=== PATIENT | male | born 1955 | race Caucasian/White ===

== ENCOUNTER 2020-06-24 11:15 | Inpatient (IN) ==
--- NOTE | 2020-06-09 08:23 | ANES ---
Anesthesia Pre Procedure Eval HOME MEDICATIONS aspirin 81 mg tablet,delayed release 81 mg PO DAILY 02/12/18 [Last Taken Unknown] blood-glucose meter See Dose Instructions .ROUTE .MEDSUPPLY #1 ea 02/12/18 [Last Taken Unknown] furosemide 40 mg tablet 40 mg PO BID #180 tab 06/27/19 [Last Taken Unknown] simvastatin 20 mg tablet 20 mg PO HS #90 tab 06/27/19 [Last Taken Unknown] insulin syringe-needle U-100 1 mL 30 gauge x 1/2" See Dose Instructions .ROUTE .MEDSUPPLY #100 ea 08/07/19 [Last Taken Unknown] acetaminophen 650 mg tablet,extended release 1,300 mg PO BID tab 10/16/19 [Last Taken Unknown] metoprolol succinate 100 mg tablet,extended release 24 hr 100 mg PO DAILY #30 tab 10/16/19 [Last Taken Unknown] clopidogrel 75 mg tablet See Rx Instructions .ROUTE .COMPLEX #30 tablet 11/12/19 [Last Taken Unknown] losartan 100 mg tablet See Rx Instructions .ROUTE .COMPLEX #90 tab 12/15/19 [Last Taken Unknown] ropinirole 3 mg tablet See Rx Instructions .ROUTE .COMPLEX #90 unknown measurement unit code: tablet 01/06/20 [Last Taken Unknown] insulin glargine 100 unit/mL (3 mL) subcutaneous pen 110 unit SUB-Q BID #90 ml 01/20/20 [Last Taken Unknown] insulin human U-100 NPH-regulr 70-30 mix 100 unit/mL subcutaneous susp See Rx Instructions .ROUTE .COMPLEX #90 ml 01/20/20 [Last Taken Unknown] metformin 1,000 mg tablet 1,000 mg PO BID #60 tab 01/20/20 [Last Taken Unknown] allopurinol 300 mg tablet 300 mg PO DAILY #90 tab 02/16/20 [Last Taken Unknown] tamsulosin 0.4 mg capsule 0.8 mg PO DAILY #180 cap 04/12/20 [Last Taken Unknown] Allergies/Adverse Reactions: Allergies Allergy/AdvReac Type Severity Reaction Status Date / Time Neuromuscular Blockers, AdvReac Severe severe Verified 06/02/20 13:52 Steroidal hypertension Corticosteroids AdvReac Mild Other Verified 06/02/20 13:52 (Glucocorticoids) prednisolone AdvReac Other Verified 06/02/20 13:52 - Planned Procedure Planned Procedure: L Arthroplasty Total Knee Medication List Reviewed:: Yes Allergies Verified: Yes Medical History (Last Reviewed 06/09/20 @ 08:22 by Hari Gastelum CRNA) Chronic knee pain after total replacement of right knee joint (Chronic) TKA 8 years ago Chronic right shoulder pain (Chronic) Primary osteoarthritis of left knee (Chronic) Erectile dysfunction of organic origin Onset Date: 01/18/13 Moderate concentric left ventricular hypertrophy Onset Date: 10/23/12 BPH (benign prostatic hyperplasia) Onset Date: Unknown Chronic kidney disease, stage 3 (moderate) Onset Date: 08/03/15 Chronic venous insufficiency Onset Date: 01/29/18 DJD (degenerative joint disease) of knee Onset Date: ~2010 bilateral Diabetes mellitus Onset Date: ~2003 Diastolic dysfunction Onset Date: 10/23/12 Edema Onset Date: 11/22/12 GERD (gastroesophageal reflux disease) Onset Date: 07/27/15 Gout Onset Date: Unknown Hyperlipidemia Onset Date: Unknown Hypertension Onset Date: ~2002 Obstructive sleep apnea Onset Date: 12/15/14 Trace mitral regurgitation by prior echocardiogram Onset Date: 10/23/12 CVA (cerebral vascular accident) Onset Date: ~2008 Otitis externa Onset Date: 01/29/18 infective, left Surgical History (Last Reviewed 06/09/20 @ 08:22 by Hari Gastelum CRNA) H/O arthroscopy of right knee Onset Date: Unknown History of appendectomy Onset Date: ~1971 History of knee replacement procedure of right knee Onset Date: 05/01/11 Dr Guerra History of thoracotomy Onset Date: ~1969 History of tonsillectomy Onset Date: ~1962 History of vasectomy Onset Date: 12/14/14 Family History (Last Reviewed 06/09/20 @ 08:22 by Hari Gastelum CRNA) Mother Diabetes Cancer CHF (congestive heart failure) Father Diabetes Sister Cancer - Family Anesthesia History Family History:: no untoward family reactions to anesthesia - Airway/Neck/Teeth Teeth Condition: intact - Respiratory Respiratory History: CPAP/BiPAP home use Smoking Status: Never smoker Sleep Apnea currently treated: Yes Sleep Apnea by current assessment: Yes - Cardiovascular Cardiac History: CVA/stroke, hypertension, hyperlipidemia Tolerate Activity: Fair - Gastrointestinal NPO since: mn - Anesthesia Assessment and Plan ASA Class: PS, III Anesthesia Type Plan: Spinal - adductor canal block
[~2020-06-24 11:15] MED LIST: MORPHINE SULFATE 15 MG TABLET.SA PO PRN; RINGER'S SOLUTION,LACTATED 1,000 ML IV PRN; ROPIVACAINE HCL/PF 100 MG, EPINEPHrine 0.2 MG in NORMAL SALINE 100 ML IJ PRN; TRANEXAMIC ACID 1,000 MG in NORMAL SALINE 100 ML IV PRN; ceFAZolin SODIUM 1 GM VIAL IV PRN
[2020-07-15] MEDS ORDERED: MORPHINE SULFATE 15 MG TABLET.SA PO PRN (06:00)
[2020-07-15] MEDS ORDERED: ceFAZolin SODIUM 1 GM VIAL IV PRN (06:00)
[2020-07-15] MEDS ORDERED: RINGER'S SOLUTION,LACTATED 1,000 ML IV PRN ×2 (06:00→10:20)
[2020-07-15] MEDS ORDERED: ROPIVACAINE HCL/PF 100 MG, EPINEPHrine 0.2 MG in NORMAL SALINE 100 ML IJ PRN (06:00)
[2020-07-15] MEDS ORDERED: TRANEXAMIC ACID 1,000 MG in NORMAL SALINE 100 ML IV PRN (06:00)
[2020-07-15] MEDS ORDERED: ISOPROPYL ALCOHOL 480 APPL BTL MC ONE (06:28)
[2020-07-15] MEDS ORDERED: ceFAZolin SODIUM 1 GM VIAL ONE (06:28)
[2020-07-15] MEDS ORDERED: diphenhydrAMINE HCL 50 MG/ML VIAL IV PRN ×2 (07:26→10:20)
[2020-07-15] MEDS ORDERED: HYDROmorphone HCL 2 MG/ML VIAL IV PRN (07:26)
[2020-07-15] MEDS ORDERED: NALOXONE HCL 0.4 MG/ML VIAL IV PRN (07:26)
[2020-07-15] MEDS ORDERED: ONDANSETRON HCL/PF 2 MG/ML VIAL IV PRN ×2 (07:26→10:20)
[2020-07-15] MEDS ORDERED: PROCHLORPERAZINE EDISYLATE 5 MG/ML VIAL IV PRN (07:26)
[2020-07-15] MEDS ORDERED: LIDOCAINE HCL 20 ML VIAL ONE (07:42)
[2020-07-15] MEDS ORDERED: ONDANSETRON HCL/PF 2 MG/ML VIAL ONE (07:43)
[2020-07-15] MEDS ORDERED: PROPOFOL VIAL IV ONE (07:43)
[2020-07-15] MEDS ORDERED: fentaNYL CITRATE/PF 50 MCG/ML AMPUL ONE (07:43)
[2020-07-15] MEDS ORDERED: BUPIVACAINE HCL/EPINEPHRINE 50 ML VIAL ONE (07:44)
[2020-07-15] MEDS ORDERED: ZOLPIDEM TARTRATE 5 MG TABLET PO PRN (10:20)
[2020-07-15] MEDS ORDERED: ACETAMINOPHEN 500 MG TABLET PO PRN (10:20)
[2020-07-15] MEDS ORDERED: MAGNESIUM HYDROXIDE 30 ML UDC PO PRN (10:20)
[2020-07-15] MEDS ORDERED: MAG HYDROX/ALUMINUM HYD/SIMETH 30 ML UDC PO PRN (10:20)
[2020-07-15] MEDS ORDERED: MORPHINE SULFATE 2 MG/ML DISP.SYRIN IV PRN (10:20)
--- NOTE | 2020-07-15 10:20 | OR ---
Operative Report - Dictated Report Narrative: Date: 07/15/2020 Preoperative diagnosis: Left knee degenerative joint disease. Postoperative diagnosis: Left knee degenerative joint disease. Procedure: Left total knee arthroplasty. Surgeon: Angus Castañeda M.D. Manager Materials Management: Mohsen Hurtado PA-C (provided and essential set of skilled, educated hands that assisted with transfer, positioning, prepping, draping, manipulation, retraction, placement of jigs, injection, insertion of implants, irrigation, closure wounds, and dressings all of which could not be performed by the available surgical crew) Anesthesia: Spinal with regional block and local periarticular joint injection. Complications: None Specimens: Bone. Estimated blood loss: Minimal. Tourniquet time: 120 minutes at 350 millimeters of mercury. Retained implants: Depuy Attune size 8 left lugged cemented posterior stabilized femoral component. Size 7 fixed-bearing cemented revision tibial platform. 8 by 5 millimeter posterior stabilized cross-linked tibial insert. 41 millimeter medialized patella button. Indications: Mr. Doll is a 65-year-old gentleman who has had longstanding left knee pain and arthrosis. This patient was followed in my clinic for period of time with significant complaints of left knee pain consistent with arthritic changes. He had failed conservative measures including, but not limited to, activity modification, passage of time, medications, and other conservative measures. Patient wished to proceed with surgical treatment. The risks, benefits, and alternatives were discussed in clinic. The risks of , blood clots, bleeding, infection, nerve/tendon blood vessel/ injury, malposition of components, intraoperative fracture, postoperative limited range of motion, persistent pain, failure of components, and need for additional procedures. Patient wished to proceed consent was obtained after answering all questions. Procedure: After marking the correct extremity on the floor, the patient was taken to the operating room. A timeout was performed. IV antibiotics consisting of Ancef were administered prior to the procedure. A regional followed by spinal anesthetic was induced by anesthesia, per my request, on the operative table with all bony prominences well-padded. Lopez catheter was placed, and a bump was placed under the operative side buttock. SCDs and LANA hose were utilized on the nonoperative leg. A well-padded tourniquet was applied to the operative thigh. The operative leg was then pre-scrubbed with alcohol, prepped, and draped in a standard sterile fashion. After exsanguinating the extremity with an Esmarch bandage, the tourniquet was inflated. After marking out the anterior knee for standard incision centered over the patella, the skin was incised and dissected down to the joint retinaculum. The joint retinaculum was marked out as well as the horizontal axis of the patella, and a standard medial parapatellar arthrotomy was then made. The most proximal aspect of the quadriceps tendon and the patella tendon insertion were protected from release. A partial synovectomy was performed as well as a resection of the infrapatellar fat pad. The distal femoral fat pad proximal to the trochlea was also resected using cautery. The soft tissues were elevated off the medial aspect of the proximal tibia using a Paulino elevator ensuring that we did not transect the medial collateral ligament. Upon initial evaluation range of motion was approximately 0 degrees to 110 degrees of flexion. There were signs of advanced arthrosis in the medial, lateral, and patellofemoral joint spaces. There were large marginal osteophytes which were removed with a rongeur. The knee was hyperflexed and the patella was tucked laterally. Protecting the surrounding soft tissues with Homans, an entry drill was placed down the femoral canal using Whitesides line for guidance into the entry point. The intramedullary femoral alignment migdalia was utilized in order to cut the distal femur in 5 degrees of valgus resecting 10 millimeters of bone. Next the distal femur was sized to a size 8. A posterior referencing guide was utilized to place the distal femoral cutting block in 3 degrees of external rotation. This was pinned into place. The rotation was confirmed both visually and based on anatomic landmarks. The 4 in 1 cutting jig of the appropriate size was utilized in order to make all bony cuts. The malika wing was used to ensure no notching. Retractors were utilized in order to protect surrounding soft tissues. This cut did not result in any excessive notching. We then cut the box centered over the distal femur. This allowed for resection of the anterior and posterior cruciate ligaments. I then turned my attention to the preparation of the tibia. Using an extra medullary tibial alignment migdalia, 3 millimeters of bone was resected off the medial articular surface. This was made perpendicular to the mechanical axis of the joint with the alignment migdalia centered over the ankle mortise. The alignment migdalia was checked and was noted to be parallel to the mechanical axis, centered over the medial one third of the tibial tubercle, paralleling the anterior surface of the tibia. We then turned our attention to the remaining meniscus and soft tissues. These were removed while protecting the surrounding ligaments and soft tissues. The marginal osteophytes off the anterior, posterior, medial, lateral aspects of the femur and tibia were removed. The tibia was sized out to a size 7. Next the tibia was drilled and punched in an externally rotated position. Next the trial femur and a series of tibial inserts were utilized in order to allow for full extension and maximal flexion. It was found that a 5 millimeter insert gave the best range of motion and stability at multiple flexion points as well as at full extension there was less than 2 mm of gapping both medially and laterally. There is minimal anterior translation with the knee at 90 degrees of flexion and no signs of being able to dislocate the knee. The patella was then prepared. The initial thickness was 25 millimeters. This was reamed down to 15 millimeters parallel to the anterior surface of the patella. It was sized out to a size 41 medialized patella button. This was then drilled and trialed. Without any medial restraint the patella tracked appropriately and did not sublux or dislocate. At this point, it was felt these were the appropriate sized implants, and all trials were removed. The periarticular joint injection consisting of ropivacaine, and epinephrine were injected into the periarticular joint tissues. The bony surfaces were thoroughly irrigated with a pulsatile-suction saline irrigation device. A bone plug from the prior resected anterior chamfer cut was placed into the drill hole at the distal femur. The bony surfaces were then dried in preparation for placement of the implants. The cement was vacuum mixed per the nsh teacher's instructions. The cement was placed on the dry bony surfaces and posterior aspect of the implants. The implants were impacted into place, removing all extruded cement. At this point anesthesia administered tranexamic acid per protocol intravenously. The knee was placed in extension with axial loading with the trial insert while the cement cured. Once the cement cured, all remaining extruded cement was removed. The knee was placed through a range of motion with the trial insert to ensure appropriate range of motion and stability. Final range of motion was approximately 0 to 120 degrees. The knee was again thoroughly irrigated with pulsatile saline lavage. The final polyethylene insert was then impacted into place ensuring no retained soft tissues. The remaining periarticular joint injection was injected. A medium Hemovac drain was placed exiting superior laterally. The knee was then placed over a triangle and the arthrotomy was closed with interrupted #1 Vicryl after thoroughly irrigating the joint. The deep and subcutaneous tissues were closed with interrupted 0 and 3-0 Vicryl respectively. Skin was closed with a running subcutaneous 3-0 Monocryl and Prineo Dermabond dressing. 4 x 4's, Sof-Rol, and a full leg Rodriguez wrap were applied. All sponge, needle, blade, and instrument counts were correct prior to closing the wounds. Postoperative condition: The patient was awoken and transferred to the postanesthesia care unit in stable condition. Plan is to be admitted to the inpatient medical/surgical floor postoperatively for 24 hours of IV antibiotics, physical therapy, occupational therapy, and medical comanagement. Patient will be weightbearing as tolerated with range of motion as tolerated. DVT prophylaxis will be with SCDs, LANA hose, and pharmacological anticoagulation. Anticipated hospital stay is approximately 1-3 days.
--- NOTE | 2020-07-15 11:02 | ANES ---
Post Anesthesia Discharge - Transfer of Care Transfer of Care handoff given to nurse: Yes - Discharge from PACU Discharge from PACU when meets criteria: Yes - Discharge to ASU Discharge to ASU-no complications/pt stable: Yes
--- NOTE | 2020-07-15 11:03 | ANES ---
Anesthesia Procedure Note Procedure Note: ANESTHESIA PROCEDURE NOTE Date of Procedure: 07/15/2020. Time of procedure: 0750. Performed by: Ted Branham CRNA Ball Thread Machine Tender: None. Preprocedure diagnosis: Left knee degenerative joint disease. Post procedure diagnosis: Same. Procedure: Left ultrasound guided femoral block for postoperative analgesia. Indications: The patient is a 65-year-old male, requesting left ultrasound- guided femoral nerve block for postoperative analgesia related to left total knee arthroplasty. Findings: See below. Details of the procedure: The tissue over the intended target site was cleansed with ChloraPrep. 1 ml Lidocaine 1 % was infiltrated to the skin and subcutaneous tissue. Under sterile technique and ultrasound guidance a 21-gauge block needle was inserted anterior to the left femoral nerve . 30 mL's of 0.5% bupivacaine plus epinephrine 1:200,000 was injected after negative aspiration for blood. Needle tip and spread of local anesthetic surrounding the femoral nerve was observed throughout the injection with realtime ultrasound visualization. The needle was removed intact. No complications were noted. The images were retained in the Hospital medical database . EBL: Minimal. Fluids: N/A. Specimen: N/A. Post procedure condition: The patient tolerated the procedure well. No complic ations were noted. Thank you for this consultation. Ted Branham CRNA
--- NOTE | 2020-07-15 12:07 | ANES ---
Post Anesthesia Assessment - Vital Signs Vitals: Last Vital Signs Temp 36.6 C 07/15/20 11:30 Pulse 82 07/15/20 11:45 Resp 16 07/15/20 11:45 BP 181/86 H 07/15/20 11:45 Pulse Ox 96 07/15/20 11:45 Airway Patency: Normal - Mental Status Level Of Consciousness: Awake - Pain Level Pain Score: 0 - N/V Assessment Nausea/Vomiting Presence: None Dehydration:: No
[2020-07-15] MEDS: oxyCODONE HCL/ACETAMINOPHEN 1 TAB TABLET PO PRN ×2 (12:31→16:32)
[2020-07-15] MEDS: ceFAZolin SODIUM 1 GM in DEXTROSE 5 % IN WATER 100 ML IV SCH ×6 (12:32→23:57)
[2020-07-15] MEDS ORDERED: CLONIDINE HCL 0.1 MG TABLET PO ONE (16:30)
[2020-07-15] MEDS: HUM INSULIN NPH/REG INSULIN HM 100 UNIT/ML VIAL SC SCH (17:35)
[2020-07-15] MEDS: MORPHINE SULFATE 15 MG TABLET.SA PO SCH (20:15)
[2020-07-15] MEDS: PRAZOSIN HCL 1 MG CAPSULE PO SCH (20:16)
[2020-07-15] MEDS: FUROSEMIDE 20 MG TABLET PO SCH (20:17)
[2020-07-15] MEDS ORDERED: INSULIN GLARGINE,HUM.REC.ANLOG 100 UNITS/ML VIAL SC SCH (21:00)
[2020-07-15] MEDS ORDERED: SIMVASTATIN 20 MG TABLET PO SCH (21:00)
[2020-07-15] MEDS ORDERED: SENNOSIDES/DOCUSATE SODIUM 1 TAB TABLET PO SCH (21:00)
[2020-07-15] MEDS ORDERED: rOPINIRole HCL 1 MG TABLET PO SCH (21:00)
[2020-07-16 06:57] LABS: Hematocrit 35.9 % (42.0-52.0); Hemoglobin 11.1 gm/dL (13.5-18.0); Mean Cell Volume 98.4 fl (78-100); Mean Corpuscular Hemoglobin 30.4 pg (27-31); Mean Corpuscular Hgb Conc 30.9 g/dl (32-36); Mean Platelet Volume 12.1 fl (8-11.3); Platelet Count 110 K/mm3 (150-450); Red Blood Count 3.65 M/mm3 (4.7-6.0); Red Cell Distribution Width 13.6 % (11.5-14.0); White Blood Count 10.7 K/mm3 (4.0-10.5)
[2020-07-16 07:04] LABS: Anion Gap 13.3 mmol/L (6.8-13.8); BUN/Creatinine Ratio 14.6 (9.0-21.6); Calcium * 8.3 mg/dL (7.9-10.9); Carbon Dioxide 21.7 mmol/L (24-32.6); Estimated Creat Clear 23.7
[2020-07-16] MEDS ORDERED: ACETAMINOPHEN 500 MG TABLET PO ONE (07:26)
[2020-07-16] MEDS: HUM INSULIN NPH/REG INSULIN HM 100 UNIT/ML VIAL SC SCH (08:15)
[2020-07-16] MEDS: FUROSEMIDE 20 MG TABLET PO SCH (08:20)
[2020-07-16] MEDS: PRAZOSIN HCL 1 MG CAPSULE PO SCH (08:20)
[2020-07-16] MEDS: MORPHINE SULFATE 15 MG TABLET.SA PO SCH (08:24)
[2020-07-16] MEDS ORDERED: TAMSULOSIN HCL 0.4 MG CAP.SR.24H PO SCH (09:00)
[2020-07-16] MEDS ORDERED: ALLOPURINOL 300 MG TABLET PO SCH (09:00)
[2020-07-16] MEDS ORDERED: LOSARTAN POTASSIUM 50 MG TABLET PO SCH (09:00)
[2020-07-16] MEDS ORDERED: METOPROLOL SUCCINATE 100 MG TABLET.SA PO SCH (09:00)
[2020-07-16] MEDS ORDERED: ENOXAPARIN SODIUM 30 MG/0.3 ML SYRG SC SCH (09:20)
--- NOTE | 2020-07-16 11:25 | DS ---
(1) Status post left knee replacement Problem: Acute (2) Benign essential hypertension Problem: Chronic (3) Elevated blood pressure reading Problem: Acute (4) Chronic renal failure, stage 4 (severe) Problem: Chronic (5) Primary osteoarthritis of left knee Problem: Chronic Date of Discharge:: 07/16/20 Hospital Course: Mr. Doll was admitted to the floor after undergoing left total knee arthroplasty. Tolerated this well. Was admitted to the floor postoperatively for 24 hours of IV antibiotics, pain control, medical comanagement, and occupational and physical therapy. OT and PT were consulted to assist with activities of daily living and ambulation. Was made weightbearing as tolerated with range of motion as tolerated. Pain was initially controlled with IV regimen. This was transitioned to oral once tolerating a by mouth intake. Was resumed on home diet and medications. Had a Lopez catheter inserted and the operating room which was discontinued on postoperative day 1. A drain was placed intraoperatively into the knee which was discontinued on postoperative day 1. Lovenox SCD and LANA hose were utilized for DVT prophylaxis. Vital signs remained stable to the hospital course. Serial labs were obtained which showed a final hemoglobin of 11.1 grams. BMP was reviewed with a creatinine of 3.08. Physical examination throughout the hospital course showed an extremity that had sensation that was intact to light touch, palpable pulses, a benign wound, motor intact to the toes, ankle, and knee. Knee range of motion was approximately 5 degrees to 60 degrees. Once an oral pain regimen was tolerated and physical therapy goals were met, it was felt that they were stable for discharge to home. Instructions: Continue with weightbearing as tolerated and range of motion as tolerated. It is OK to shower on the wound if it is not draining. If you note any drainage or for comfort you can cover with dry gauze and tape. Change every 2-3 days as needed. Continue with physical therapy. Resume home diet. Report any fever over 101.5 Fahrenheit, uncontrolled pain, increased drainage, foul odor of drainage, new or increased calf pain or shortness of breath, or any other significant complaints. A 325mg dialy aspirin will be started after finishing anticoagulation if not allergic. Continue with LANA hose on the operative extremity until instructed otherwise. No driving until instructed otherwise. Follow up in approximately 10-14 days. Procedures Performed: see notes below List Procedures: Left total knee arthroplasty Results and Findings: Lab Pending Results 07/16/20 06:40: WBC 10.7 H, RBC 3.65 L, Hgb 11.1 L, Hct 35.9 L, MCV 98.4, MCH 30.4, MCHC 30.9 L, RDW 13.6, Plt Count 110 L, MPV 12.1 H 07/16/20 06:40: Sodium 139, Plasma Sodium 140, Potassium 4.0, Chloride 108 H, Carbon Dioxide 21.7 L, Anion Gap 13.3, BUN 45 H, Creatinine 3.08 H D, Est GFR (Non-Af Amer) 22 L D, BUN/Creatinine Ratio 14.6, Random Glucose 133 H, Calcium 8.3 Discharge Location: Home Disposition: Home self-care Condition: Good Discharge Activity: Activity as tolerated, Weight bearing, Other - With wheeled walker Discharge Diet: Low salt Referrals: Benedict Pierce MD [Staff Physician] - Additional Patient Instructions (free text): Physical Therapy at [facility] outpatient rehab on SundayJuly 19 at 8:30am. Follow up [facility] Orthopedic office appointment on SundayAugust 04 at 1:45pm. Prescriptions (Any new or edited meds): Enoxaparin Sodium [Lovenox] 30 mg SC Q24H #7 disp.syrin Transmission Status: Received by [facility] Morphine Sulfate [Ms Contin] 15 mg PO Q12H #10 tablet.sa Transmission Status: Received by [facility] oxyCODONE HCL/ACETAMINOPHEN [Percocet 5 MG/325 MG] 1 - 2 tab PO Q4H PRN #50 tab PRN Reason: Moderate Pain (Pain Scale 4-6) Transmission Status: Received by [facility] Sennosides/Docusate Sodium [Senokot-S] 2 tab PO HS #60 tab Transmission Status: Received by [facility] Complete Home Medications List: Complete Home Medication List: aspirin 81 mg tablet,delayed release 81 mg PO DAILY 02/12/18 blood-glucose meter See Dose Instructions .ROUTE .MEDSUPPLY #1 ea 02/12/18 simvastatin 20 mg tablet 20 mg PO HS #90 tab 06/27/19 acetaminophen 650 mg tablet,extended release 1,300 mg PO BID PRN tab 10/16/19 clopidogrel 75 mg tablet See Rx Instructions .ROUTE .COMPLEX #30 tab 11/12/19 allopurinol 300 mg tablet 300 mg PO DAILY #90 tab 02/16/20 tamsulosin 0.4 mg capsule 0.8 mg PO DAILY #180 cap 04/12/20 Losartan Potassium [Cozaar] 100 mg PO DAILY 06/09/20 metoprolol succinate 200 mg tablet,extended release 24 hr 200 mg PO DAILY #90 tab 06/15/20 insulin glargine 100 unit/mL (3 mL) subcutaneous pen 30 unit SUBCUT HS #15 ml 06/23/20 insulin human U-100 NPH-regulr 70-30 mix 100 unit/mL subcutaneous susp See Rx Instructions .ROUTE .COMPLEX #90 ml 06/23/20 one touch ultra test strips #300 ea 06/25/20 furosemide 20 mg tablet 20 mg PO BID #60 tab 06/30/20 prazosin 1 mg capsule 1 mg PO BID #60 cap 06/30/20 ropinirole 3 mg tablet 3 mg PO HS #90 tab 07/09/20 Syringe and Needle,Insulin,1Ml [Techlite Insulin Syringe] 1 appful .ROUTE .MEDSUPPLY 07/15/20 Enoxaparin Sodium [Lovenox] 30 mg SC Q24H #7 disp.syrin 07/16/20 Morphine Sulfate [Ms Contin] 15 mg PO Q12H #10 tablet.sa 07/16/20 Sennosides/Docusate Sodium [Senokot-S] 2 tab PO HS #60 tab 07/16/20 oxyCODONE HCL/ACETAMINOPHEN [Percocet 5 MG/325 MG] 1 - 2 tab PO Q4H PRN #50 tab 07/16/20 Amb Orders for Discharge: PT Evaluation and Treatment* Facility: [facility], Location: Rehabilitation Services Forms: Patient Portal Registration
[2020-07-16] MEDS: oxyCODONE HCL/ACETAMINOPHEN 1 TAB TABLET PO PRN (12:50)
[2020-07-16 13:27] VITALS: BP 148/57
== END 2020-07-16 14:30 | disposition home or self-care (01) | DRG 470 ==
LOC: EDSTATUS 12:40 → MS 07-15 06:19
PROVIDERS: ADMIT Orthopaedic Surgery; ATTEND Orthopaedic Surgery
DX: Z79.4 Long term (current) use of insulin; M17.12 Unilateral primary osteoarthritis, left knee; I13.0 Hypertensive heart and chronic kidney disease with heart failure and stage 1 through stage 4 chronic kidney disease, or unspecified chronic kidney disease; E66.01 Morbid (severe) obesity due to excess calories; E78.5 Hyperlipidemia, unspecified; G47.33 Obstructive sleep apnea (adult) (pediatric); I50.30 Unspecified diastolic (congestive) heart failure; Z68.42 Body mass index [BMI] 45.0-49.9, adult; N18.4 Chronic kidney disease, stage 4 (severe); E11.22 Type 2 diabetes mellitus with diabetic chronic kidney disease